=== PATIENT | female | born 1955 | race Two or more races ===

== ENCOUNTER 2018-10-16 06:19 | Emergency (ER) | payer BC, OTHER ==
[~2018-10-16] VITALS: Ht 160 cm; Wt 90.7 kg
[2018-10-16] MEDS ORDERED: SODIUM BICARBONATE 8.4% INJ 50ML SYRINGE ONE (06:27)
== END 2018-10-16 10:43 | disposition expired ==
LOC: ER 06:19
DX: I46.9 Cardiac arrest, cause unspecified (principal); J44.9 Chronic obstructive pulmonary disease, unspecified
CPT/HCPCS: 31500; 92950